=== PATIENT | male | born 1935 | race Caucasian/White ===

== ENCOUNTER 2017-03-03 07:23 | Inpatient (IN) | payer OTHER ==
[~2017-03-03] VITALS: Ht 185.4 cm; Wt 84.5 kg
[2017-03-03 08:03] LABS: HEMATOCRIT 40.2 % (38.0-50.0); MCH 28.9 PG (29.0-34.0); MCHC 30.6 G/DL (30.0-36.0); MCV 94.4 FL (86-99); MEAN PLAT.VOLUME 10.8 uM^3 (9.0-12.4); NRBC (%) 0.1 /100 WBC (0-0); PLATELET COUNT 305 K/uL (156-360); RBC DIS.WIDTH-CV 16.2 % (11.8-14.6); RBC DIS.WIDTH-SD 56.4 % (39-53); RED BLOOD COUNT 4.26 M/uL (4.00-5.50)
[2017-03-03 08:05] LABS: ADD MIUA? YES; BILIRUBIN NEGATIVE; BLOOD NEGATIVE; COLOR AMBER ((YELLOW)); GLUCOSE (STRIP) NEGATIVE; KETONES NEGATIVE; LEUKOCYTES NEGATIVE; NITRITE NEGATIVE; PROTEIN (STRIP) 30; SPECIFIC GRAVITY 1.021 (1.000-1.030)
[2017-03-03 08:07] LABS: WHITE BLOOD COUNT 20.9 K/uL (4.1-10.2)
[2017-03-03 08:14] LABS: CHLORIDE 126 mEq/L (99-109); SODIUM 157 mEq/L (136-147)
[2017-03-03 08:15] LABS: INTER. NORMALIZED RATIO 1.6; PROTHROMBIN TIME 16.1 (9.2-11.2); PTT 32.3 (25-32)
[2017-03-03 08:17] LABS: GLUCOSE 111 mg/dL (70-99)
[2017-03-03 08:18] LABS: ANION GAP 11 MEQ/L (2-14); TOTAL BILIRUBIN 1.3 mg/dL (0.0-1.0)
[2017-03-03 08:18] LABS: BACTERIA NONE SEEN /HPF; EPITHELIAL CELLS RARE /HPF; MUCUS 2+ /LPF; RED BLOOD CELLS 0-5 /HPF (0-5); UCUL ADDED? NO; WHITE BLOOD CELLS 0-5 /HPF (0-5)
[2017-03-03 08:20] LABS: ALKALINE PHOSPHATASE 78 IU/L (3-129); GFR ESTIMATE (CALCULATED) 56 mL/min/
[2017-03-03 08:21] LABS: UREA NITROGEN (BUN) 53 mg/dL (9-23)
[2017-03-03 08:23] LABS: CREATINE KINASE 18 IU/L (1-294); TOTAL CK 18 IU/L (1-294); TROP-I INTERPRETATION NEGATIVE; TROPONIN-I 0.04 ng/mL (0.0-0.30)
[2017-03-03 08:49] LABS: CK-MB < 0.4 ng/mL (0.0-4.9)
[2017-03-03 08:58] LABS: EOSINOPHIL (%) 0 % (0-5); IMMATURE GRANULOCYTE (%) 1.4 % (0.0-0.7); IMMATURE GRANULOCYTE COUNT 0.3 K/uL; INSTRUMENT ABS NEUTROPHIL CT 17.8 K/uL; LYMPHOCYTE COUNT 1.7 K/uL (1.0-2.8); MONOCYTE (%) 5.3 % (3-12); MONOCYTE COUNT 1.1 K/uL (0-0.8); NEUTROPHIL (%) 84.9 % (45-76); NEUTROPHIL COUNT 17.8 K/uL (1.8-6.4)
[2017-03-03] MEDS ORDERED: AMIODARONE HCL100 MG PO (10:36)
[2017-03-03] MEDS ORDERED: WELLBUTRIN XL300 MG PO (10:37)
[2017-03-03] MEDS ORDERED: FLOMAX0.4 MG PO (10:37)
[2017-03-03] MEDS ORDERED: FOLIC ACID1 MG PO (10:38)
[2017-03-03] MEDS ORDERED: TOPROL XL25 MG PO (10:38)
[2017-03-03] MEDS ORDERED: XARELTO15 MG PO (10:40)
[2017-03-03] MEDS ORDERED: CYANOCOBALAM1000 MCG PO (10:45)
[2017-03-03] MEDS ORDERED: K-DUR20 MEQ PO (10:45)
[2017-03-03] MEDS ORDERED: MIRALAX255 GM PO (10:46)
[2017-03-03] MEDS ORDERED: LINZESS145 MCG PO (10:46)
[2017-03-03] MEDS ORDERED: AUGMENTIN875 MG PO (10:49)
[2017-03-03] MEDS ORDERED: ACIDOPHILUS1 EAC4 PO (10:56)
[2017-03-03] MEDS ORDERED: MILK OF MAGN PO (10:58)
[2017-03-03] MEDS ORDERED: DULCOLAX10 MG PR (11:00)
[2017-03-03] MEDS ORDERED: FLEET ENEMA-AD118 ML PR (11:04)
[2017-03-03] MEDS ORDERED: PAIN RELIEF325 M1 PO (11:05)
[2017-03-03] MEDS ORDERED: IPRATR-ALBUTEROL3 ML IH (11:12)
[2017-03-03] MEDS ORDERED: [UNRECOGNIZED DRUG - OTHER] (11:17)
[2017-03-03 18:06] VITALS: BP 134/65
[2017-03-03 20:00] VITALS: BP 134/64
[2017-03-04 00:05] VITALS: BP 163/79
[2017-03-04 05:07] VITALS: BP 139/64
[2017-03-04 07:20] VITALS: BP 144/71
[2017-03-04 10:31] LABS: EOSINOPHIL (%) 0.3 % (0-5); HEMATOCRIT 32.8 % (38.0-50.0); IMMATURE GRANULOCYTE (%) 1.1 % (0.0-0.7); IMMATURE GRANULOCYTE COUNT 0.2 K/uL; INSTRUMENT ABS NEUTROPHIL CT 12.3 K/uL; LYMPHOCYTE COUNT 0.8 K/uL (1.0-2.8); MCH 28.3 PG (29.0-34.0); MCHC 29.6 G/DL (30.0-36.0); MCV 95.6 FL (86-99); MONOCYTE (%) 4.6 % (3-12); MONOCYTE COUNT 0.7 K/uL (0-0.8); NEUTROPHIL COUNT 12.3 K/uL (1.8-6.4); RBC DIS.WIDTH-SD 56.8 % (39-53); RED BLOOD COUNT 3.43 M/uL (4.00-5.50)
[2017-03-04 10:53] LABS: PLATELET COUNT UNABLE TO REPORT K/uL (156-360)
[2017-03-04 10:54] LABS: PLAT.SUFFICIENCY ADEQUATE
[2017-03-04 11:09] LABS: ANION GAP 8 MEQ/L (2-14); CHLORIDE 124 MEQ/L (99-109); GLUCOSE 129 mg/dL (70-99); SAMPLE HEMOLYSIS CHECK 0; SAMPLE ICTERIC CHECK 0; SAMPLE LIPEMIA CHECK 0; SODIUM 154 MEQ/L (136-147); UREA NITROGEN (BUN) 33 mg/dL (9-23)
[2017-03-04 11:11] LABS: GFR ESTIMATE (CALCULATED) > 59 mL/min/; POTASSIUM 3.1 MEQ/L (3.7-5.4)
[2017-03-04 13:01] VITALS: BP 143/67
[2017-03-04 17:23] VITALS: BP 147/67
[2017-03-04 19:37] VITALS: BP 141/68
[2017-03-05 01:09] VITALS: BP 138/66
[2017-03-05 06:00] VITALS: BP 125/60
[2017-03-05 07:01] LABS: HEMATOCRIT 32.1 % (38.0-50.0); MCH 28.9 PG (29.0-34.0); MCHC 30.8 G/DL (30.0-36.0); MCV 93.9 FL (86-99); MEAN PLAT.VOLUME 11.1 uM^3 (9.0-12.4); PLATELET COUNT 212 K/uL (156-360); RBC DIS.WIDTH-CV 15.9 % (11.8-14.6); RBC DIS.WIDTH-SD 54.3 % (39-53); RED BLOOD COUNT 3.42 M/uL (4.00-5.50); WHITE BLOOD COUNT 12.1 K/uL (4.1-10.2)
[2017-03-05 07:25] LABS: ANION GAP 9 MEQ/L (2-14); CHLORIDE 121 MEQ/L (99-109); GFR ESTIMATE (CALCULATED) > 59 mL/min/; GLUCOSE 103 mg/dL (70-99); POTASSIUM 3.1 MEQ/L (3.7-5.4); SAMPLE HEMOLYSIS CHECK 0; SAMPLE ICTERIC CHECK 0; SAMPLE LIPEMIA CHECK 0; SODIUM 153 MEQ/L (136-147); UREA NITROGEN (BUN) 23 mg/dL (9-23)
[2017-03-05 07:43] VITALS: BP 135/63
[2017-03-05 07:57] LABS: EOSINOPHIL (%) 0.5 % (0-5); EOSINOPHIL COUNT 0.1 K/uL (0-0.3); IMMATURE GRANULOCYTE (%) 0.8 % (0.0-0.7); IMMATURE GRANULOCYTE COUNT 0.1 K/uL; INSTRUMENT ABS NEUTROPHIL CT 10.5 K/uL; LYMPHOCYTE COUNT 0.9 K/uL (1.0-2.8); MONOCYTE (%) 4.6 % (3-12); MONOCYTE COUNT 0.6 K/uL (0-0.8); NEUTROPHIL (%) 86.4 % (45-76); NEUTROPHIL COUNT 10.5 K/uL (1.8-6.4)
[2017-03-05 12:00] VITALS: BP 161/80
[2017-03-05 17:52] VITALS: BP 148/67
[2017-03-05 20:00] VITALS: BP 145/65
[2017-03-06 00:29] VITALS: BP 153/73
[2017-03-06 05:32] VITALS: BP 146/69
[2017-03-06 06:05] LABS: EOSINOPHIL (%) 0.4 % (0-5); EOSINOPHIL COUNT 0.1 K/uL (0-0.3); HEMATOCRIT 30.4 % (38.0-50.0); IMMATURE GRANULOCYTE (%) 1.2 % (0.0-0.7); IMMATURE GRANULOCYTE COUNT 0.1 K/uL; INSTRUMENT ABS NEUTROPHIL CT 9.7 K/uL; LYMPHOCYTE COUNT 1.3 K/uL (1.0-2.8); MCH 28.6 PG (29.0-34.0); MCHC 30.6 G/DL (30.0-36.0); MCV 93.5 FL (86-99); MEAN PLAT.VOLUME 10.8 uM^3 (9.0-12.4); MONOCYTE COUNT 0.7 K/uL (0-0.8); NEUTROPHIL (%) 81.2 % (45-76); NEUTROPHIL COUNT 9.7 K/uL (1.8-6.4); NRBC (%) 0.3 /100 WBC (0-0); PLATELET COUNT 200 K/uL (156-360); RBC DIS.WIDTH-CV 15.6 % (11.8-14.6); RBC DIS.WIDTH-SD 53.2 % (39-53); RED BLOOD COUNT 3.25 M/uL (4.00-5.50); WHITE BLOOD COUNT 11.9 K/uL (4.1-10.2)
[2017-03-06 06:26] LABS: ANION GAP 8 MEQ/L (2-14); CHLORIDE 120 MEQ/L (99-109); GFR ESTIMATE (CALCULATED) > 59 mL/min/; GLUCOSE 107 mg/dL (70-99); POTASSIUM 3.3 MEQ/L (3.7-5.4); SAMPLE HEMOLYSIS CHECK 0; SAMPLE ICTERIC CHECK 0; SAMPLE LIPEMIA CHECK 0; SODIUM 151 MEQ/L (136-147); UREA NITROGEN (BUN) 17 mg/dL (9-23)
[2017-03-06 08:45] VITALS: BP 136/61
[2017-03-06 12:29] VITALS: BP 134/62
[2017-03-06] MEDS ORDERED: MORPHINE CON20 MG/M1 PO ×2 (13:59→14:07)
[2017-03-06] MEDS ORDERED: TYLENOL650 MG PR (13:59)
== END 2017-03-06 18:08 | DRG 871 ==
LOC: EME 07:23 → 4EAST 12:05 → EDOF 12:05 → 4EAST 17:39
PROVIDERS: Emergency Medicine; Internal Medicine
DX: A41.02 Sepsis due to Methicillin resistant Staphylococcus aureus (principal); J96.01 Acute respiratory failure with hypoxia; E87.0 Hyperosmolality and hypernatremia; I48.2 Chronic atrial fibrillation; N39.0 Urinary tract infection, site not specified; E86.0 Dehydration; G30.9 Alzheimer's disease, unspecified; F02.80 Dementia in other diseases classified elsewhere, unspecified severity, without behavioral disturbance, psychotic disturbance, mood disturbance, and anxiety; F32.9 Major depressive disorder, single episode, unspecified; K11.21 Acute sialoadenitis; I10 Essential (primary) hypertension; I25.10 Atherosclerotic heart disease of native coronary artery without angina pectoris; Z95.1 Presence of aortocoronary bypass graft; Z66 Do not resuscitate; Z51.5 Encounter for palliative care; R09.02 Hypoxemia; E78.5 Hyperlipidemia, unspecified; D63.8 Anemia in other chronic diseases classified elsewhere; Z87.891 Personal history of nicotine dependence; R79.89 Other specified abnormal findings of blood chemistry; S42.91XD Fracture of right shoulder girdle, part unspecified, subsequent encounter for fracture with routine healing; X58.XXXD Exposure to other specified factors, subsequent encounter; L03.211 Cellulitis of face; N40.0 Benign prostatic hyperplasia without lower urinary tract symptoms
CPT/HCPCS: 31720; 70450; 70487; 71010; 80048; 80053; 80202; 81003; 82550; 82553; 83605; 84484; 85025; 85610; 85730; 87040; 87077; 87186; 87801; 93005; 94640; 94640 76; 94760; 94799; 99202; 99281; 99285; J0295; J1644; J2310; J3370; J3480; J7030; J7050; J7070